=== PATIENT | female | born 1950 | race Caucasian/White ===

== ENCOUNTER → 2016-07-02 | Outpatient (CLI) | payer BC ==
[~2016-07-02] MED LIST: ACDPT PO; ALPR0.2550 PO; ASP81TEC PO; CALC1TAB38 PO; CIPR500S2 PO; CPR500T PO; HYDR118S PO; LEVO88TA26 PO; ONDA8TAB9 PO; PHEN100T26 PO; SERT25TA PO; SULF1TAB38 PO
--- NOTE | 2016-07-02 18:40 | Diagnostic Imaging Report ---
Bilateral screening mammogram. The current study was also evaluated with a Computer Aided Detection (CAD) system. INDICATION: Screening. No current complaints stated on the questionnaire. COMPARISON: 09/29/2014. FINDINGS: The breasts are composed of heterogeneously dense parenchyma which may decrease mammographic sensitivity. There is no mass, architectural distortion, or suspicious cluster of calcifications. Allowing for technique and positional differences, no suspicious change is seen. IMPRESSION: No significant change. ACR BI-RADS Category 2: Benign findings. Result letter will be mailed to the patient. Note: At least 10% of breast cancer is not imaged by mammography. Dictated by: Dictated on workstation # [id number]
== END ==
LOC: RAD 09:05
PROVIDERS: ATTEND Family Medicine
DX: Z12.31 Encounter for screening mammogram for malignant neoplasm of breast (principal)
CPT/HCPCS: 77067

== ENCOUNTER 2016-11-15 05:26 | Outpatient (CLI) | payer BC ==
[~2016-11-15] VITALS: Ht 157.5 cm; Wt 58.1 kg
[2016-11-15] MEDS ORDERED: LEVO88TA54 PO (10:37)
[2016-11-19] MEDS ORDERED: SULF1TAB35 PO (11:15)
== END 2016-11-15 10:41 ==
LOC: PREOP 05:26
PROVIDERS: ATTEND Internal Medicine
DX: Z01.818 Encounter for other preprocedural examination (principal); Z12.11 Encounter for screening for malignant neoplasm of colon

== ENCOUNTER 2016-11-19 10:27 | Day surgery (SDC) | payer BC ==
[~2016-11-19] VITALS: Ht 157.5 cm; Wt 58.1 kg
[~2016-11-19 10:27] MED LIST changes: +LEVO88TA54 PO
--- OUTSIDE RECORDS SUMMARY | 2016-11-19 10:38 | XMS REPORT | Continuity of Care Document ---
Author Author [facility] Organization [facility] Address Unknown Phone Unavailable Allergies Active Description Code Type Severity Reaction Onset Reported/Identified Relationship to Patient Clinical Status Yes No Known Drug Allergies [id number] Drug Allergy Unknown N/ A 09/18/2009 Medications Problems Date Dx Coded Attending Type Code Diagnosis Diagnosed By 07/31/2011 Ot V45.4 ARTHRODESIS STATUS 07/31/2011 Ot V57.1 PHYSICAL THERAPY NEC 08/05/2011 Ot 599.0 URIN TRACT INFECTION NOS 08/05/2011 Ot 788.1 DYSURIA 10/13/2014 LURDES RIOJAS MD Ot V76.12 07/01/2016 Ot 723.1 CERVICALGIA 07/01/2016 Ot V76.12 OTH SCREEN MAMMO-MALIGN NEOPLASM OF ALMA 07/01/2016 Ot 723.4 BRACHIAL NEURITIS NOS 07/01/2016 Ot V45.4 ARTHRODESIS STATUS 07/01/2016 LURDES RIOJAS MD Ot V76.12 OTH SCREEN MAMMO-MALIGN NEOPLASM OF ALMA 07/01/2016 LURDES RIOJAS MD Ot V76.12 OTH SCREEN MAMMO-MALIGN NEOPLASM OF ALMA 07/05/2016 SHWETHA BROWN DO Ot Z12.31 ENCNTR SCREEN MAMMOGRAM FOR MALIGNANT NE 07/17/2016 SHWETHA BROWN DO Ot Z12.31 ENCNTR SCREEN MAMMOGRAM FOR MALIGNANT NE Procedures Results Encounters ACCT No. Visit Date/Time Discharge Status Pt. Type Provider Facility Loc./Unit Complaint [id number] 07/02/2016 09:05:00 2016 23:59:59 CLS Outpatient SHWETHA BROWN DO [facility] RAD SCREENING [id number] 09/29/2014 09:09:00 2014 23:59:59 CLS Outpatient LURDES RIOJAS MD [facility] RAD SCREENING [id number] 09/28/2013 09:03:00 2013 23:59:59 [facility] Outpatient LURDES RIOJAS MD [facility] RAD SCREENING [id number] 01/14/2012 08:07:00 Document Registration [id number] 08/05/2011 06:20:00 Document Registration [id number] 07/31/2011 09:17:00 Document Registration [id number] 07/19/2011 08:36:00 Document Registration [id number] 05/01/2011 07:59:00 Document Registration
[2016-11-19] MEDS ORDERED: 1/2 NS IV SOLUTION 1,000 ML IV ONE (10:45)
[2016-11-19] MEDS ORDERED: LIDOCAINE JELLY 2% (XYLOCAINE) 5 ML TUBE ONE (10:46)
[2016-11-19 11:08] VITALS: BP 138/71
--- NOTE | 2016-11-19 11:12 | Pre-Op Note & Conscious Sedat ---
Pre-Operative Progress Note H&P Reviewed The H&P was reviewed, patient examined and no changes noted. Date H&P Reviewed: Nov 19, 2016 Time H&P Reviewed: 11:11 Conscious Sedation Pre-Proced ASA Class: 2 Airway Mallampati Classification: ([place] appropriate class) I. II. III, IV Lungs Heart ASA score ASA 1: a normal healthy patient ASA 2: a patient with a mild systemic disease (mid diabetes, controlled hypertension, obesity ASA 3: a patient with a severe systemic disease that limits activity (angina , COPD, prior Myocardial infarction) ASA 4: a patient with an incapacitating disease that is a constant threat to life (CHF, renal failure) ASA 5: a moribund patient not expected to survive 24 hrs. (ruptured aneurysm) ASA 6: a declared brain patient whose organs are being harvested. For emergent operations, add the letter E after the classification Grade 2 Sedation Plan: Analgesia, Amnesia, Plan communicated to team members, Discussed options with patient/fam, Discussed risks with patient/fam Note The patient is an appropriate candidate to undergo the planned procedure, sedation, and anesthesia. The patient immediately re-assessed prior to indication. JESSICA CASTAÑEDA MD Nov 19, 2016 11:12
[2016-11-19] MEDS: fentaNYL INJECTION 100 MCG/2 ML AMP IVP PRN ×3 (11:14→11:25)
[2016-11-19] MEDS ORDERED: SULF1TAB35 PO (11:15)
[2016-11-19] MEDS ORDERED: MIDAZOLAM 2 MG/2 ML (VERSED) VIAL ONE (11:15)
[2016-11-19] MEDS: MIDAZOLAM 2 MG/2 ML (VERSED) VIAL IVP PRN ×3 (11:16→11:23)
[2016-11-19] MEDS ORDERED: fentaNYL INJECTION 100 MCG/2 ML AMP ONE (11:19)
[2016-11-19] MEDS ORDERED: LIDOCAINE JELLY 2% (XYLOCAINE) 5 ML TUBE TOP ONE (11:45)
[2016-11-19 12:00] VITALS: BP 125/68
[2016-11-19 12:20] VITALS: BP 122/58
[2016-11-19 12:33] VITALS: BP 122/58
--- NOTE | 2016-11-21 06:51 | HISTORY AND PHYSICAL ---
DATE OF SERVICE: DATE OF ADMISSION: 11/29/2016 HISTORY OF PRESENT ILLNESS: The patient is a 66-year-old white female referred by Dr. Johnson for her second screening colonoscopy. She underwent first screening colonoscopy [address] Azevedo and reportedly had a normal examination at that time. She reports that she feels well. She denies bowel habit change, weight has been stable and she has noted no bright red blood per rectum or melena. She will occasionally pass a small amount of mucus per rectum without evidence for blood, no tenesmus, pain or reported diarrhea. 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 She has had right rotator cuff repair x3, last one in January 2008 and has a distant past history of tonsillectomy. Other than the thyroid adenoma, her past medical history is noncontributory. MEDICATIONS: Her only prescription medication is Synthroid 0.088 mg daily. She does take 81 mg aspirin daily, Krill oil and Culturelle probiotic daily. 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 FAMILY HISTORY: She had one sister with Graves disease and father had coronary artery disease with no known family history for malignancy. PHYSICAL EXAMINATION: GENERAL: Reveals a well appearing white female who appears to be in no acute distress articulate and very pleasant. VITAL SIGNS: Weight 129 pounds, blood pressure 118/80, heart rate 72 and regular. Respiratory rate 16 and nonlabored. HEENT: She is a Mallampati class 1 oropharyngeal configuration. Pharynx is clear, no erythema or exudate is noted. CHEST: Clear. CARDIOVASCULAR: Reveals regular rate and rhythm without murmur, S3 or S4. ABDOMEN: Soft, supple without mass, organomegaly or tenderness. EXTREMITIES: Reveal no cyanosis, clubbing or edema. ASSESSMENT AND PLAN: The patient was set up for screening colonoscopy on 11/29/2016. Prep instructions for the Suprep kit were given and questions were answered. In today's evaluation and review of her electronic medical record, 45 minutes care time was spent by myself and other 15 minutes of staff time setting up colonoscopy and going over prep instructions. I thank you for the referral of this pleasant lady. Job ID: [id number] DocumentID: [id number] Dictated Date: 11/14/2016 17:24:50 Mat Roller Date: 11/14/2016 19:32:06 Dictated By: JESSICA CASTAÑEDA MD MTDD
--- NOTE | 2016-11-21 13:36 | OPERATIVE REPORT ---
DATE OF SERVICE: 11/19/2016 Report Title: Colonoscopy Summary REFERRIG PHYSICIAN: Gabriela Johnson DO INDICATION FOR THE PROCEDURE: Colonoscopy was performed for screening purposes. DESCRIPTION OF PROCEDURE: The patient was placed in left lateral decubitus position. Prior to undergoing colonoscopy, digital rectal evaluation was performed. Anal sphincter tone was normal and the perianal reflex was intact. No abnormalities were noted on additional inspection of anal canal or distal rectal vault. The colonoscope was then inserted into the rectum under direct ultrasound visualization advanced to the cecum. The cecum was identified by identification of the ileocecal valve, cecal strap and the appendiceal orifice. Photographic documentation was obtained. A careful inspection was made as the colonoscope was withdrawn. The patient tolerated the procedure well. FINDINGS: There was no evidence for internal or external hemorrhoids. The rectum, sigmoid colon, descending colon, splenic flexure, transverse colon, hepatic flexure, ascending colon and cecum were normal with no evidence for neoplasia, diverticular disease or vascular malformation. ASSESSMENT: Normal colonoscopy to the cecum. As this is the patient's second normal screening colonoscopy with no reported family history for colon cancer, it is questionable as to whether or not surveillance colonoscopy in 10 years should be recommended. I thank you for the referral of this pleasant lady. Prior to the procedure, the patient also noted yesterday the onset of suprapubic pressure with increased urinary frequency and mild dysuria. She denied chills, fever or fatigue. Prior to colonoscopy, she appeared to be in no acute distress with stable vital signs. Her chest was clear. CV revealed a regular rate and rhythm without S3 or S4. She had mild suprapubic discomfort to palpation without rebound or guarding and did not believe she would have any problems proceeding with the procedure. She as noted above had an uneventful colonoscopy. A/P: Likely urinary tract infection, patient reports that she gets along well with Bactrim-DS, so one tab b.i.d. for the next 3 days was called out. If her symptoms are not resolving, she was instructed to contact Dr. Johnson for further evaluation. At the unlikely chance that she would develop shaking chills or fever. She is advised to go to the emergency room. Job ID: [id number] DocumentID: [id number] Dictated Date: 11/19/2016 11:58:50 Grant Specialist Date: 11/20/2016 00:30:22 Dictated By: JESSICA CASTAÑEDA MD MTDD
== END 2016-11-19 12:30 | disposition home or self-care (01) ==
LOC: ENDO 10:27
PROVIDERS: ATTEND Internal Medicine
DX: Z12.11 Encounter for screening for malignant neoplasm of colon (principal); R35.0 Frequency of micturition; R30.0 Dysuria

== ENCOUNTER → 2017-07-15 | Outpatient (CLI) | payer BC, MEDICARE ==
[~2017-07-15] MED LIST changes: +SULF1TAB35 PO
--- NOTE | 2017-07-15 10:48 | Diagnostic Imaging Report ---
Indication: Screening. The current study was also evaluated with a Computer Aided Detection (CAD) system. Comparison made with prior examination of 07/02/2016 back through 07/19/2011. 3-D tomosynthesis was also performed and reviewed. Findings: There is heterogeneously dense fibroglandular tissue bilaterally. There is a cluster of microcalcifications in the superolateral aspect of the left breast although in the CC projection these appear linear and likely vascular. These are relatively unchanged. There are no other suspicious calcifications. There is no dominant mass or spiculated lesion. Skin, nipples and axilla are unremarkable. Impression: Category 2 benign. ACR BI-RADS Category 2: Benign findings. Result letter will be mailed to the patient. Note: At least 10% of breast cancer is not imaged by mammography. Dictated by: Dictated on workstation # [id number]
== END ==
LOC: RAD 07:31
PROVIDERS: ATTEND Family Medicine
DX: Z12.31 Encounter for screening mammogram for malignant neoplasm of breast (principal)
CPT/HCPCS: 77067

== ENCOUNTER → 2018-07-16 | Outpatient (CLI) | payer BC ==
--- NOTE | 2018-07-16 22:15 | Diagnostic Imaging Report ---
INDICATION: Routine screening. Comparison is made with prior mammograms from 07/15/2017 and 07/02/2016. 2-D and 3-D bilateral screening mammography was performed with a Computer Aided Detection (CAD) system. 3-D tomosynthesis was also performed and reviewed. FINDINGS: Scattered fibroglandular densities are identified bilaterally. Calcifications in the upper-outer left breast at posterior depth are again noted and indeterminate. These are similar to perhaps slightly increased when compared to prior study. Additional views are recommended. Remainder of the breasts is unremarkable. Axillae are unremarkable. IMPRESSION: Left breast calcifications. Additional views are recommended. ACR BI-RADS Category 0: Incomplete. (Needs additional imaging evaluation). Result letter will be mailed to the patient. Note: At least 10% of breast cancer is not imaged by mammography. Dictated by: Dictated on workstation # [id number]
== END ==
LOC: RAD 07:31
PROVIDERS: ATTEND Family Medicine
DX: Z12.31 Encounter for screening mammogram for malignant neoplasm of breast (principal); R92.1 Mammographic calcification found on diagnostic imaging of breast
CPT/HCPCS: 77067

== ENCOUNTER → 2018-07-23 | Outpatient (CLI) | payer BC ==
--- NOTE | 2018-07-23 19:35 | Diagnostic Imaging Report ---
EXAMINATION: Digital mammogram unilateral left diagnostic. The current study was also evaluated with a Computer Aided Detection (CAD) system. 3-D tomosynthesis was also performed and reviewed. INDICATION: Left breast microcalcifications. FINDINGS: The screening mammogram performed on 07/15/2017 noted calcifications in the upper-outer aspect of the left breast at posterior depth. These were felt to be slightly increased when compared to the prior study of 07/15/2017. The magnification views of these calcifications suggest that they were most likely benign and possibly within the skin. A tangential view was performed and the calcifications do not appear to be present on that projection. I do suspect that they are within the skin. In my examination of the patient's left breast, there was a small raised area on the skin in the region of the calcifications. Consequently suspect that the calcifications are dermal and most likely benign. Even so, I would recommend that a short-term (six-month) follow-up mammogram of the left breast be obtained for continued evaluation. IMPRESSION: The calcifications in the upper-outer aspect of the left breast are felt to be dermal in nature. Recommendations as above. ACR BI-RADS Category 3: Probably benign findings. Result letter will be mailed to the patient. Note: At least 10% of breast cancer is not imaged by mammography. Dictated by: Dictated on workstation # [id number]
== END ==
LOC: RAD 13:30
PROVIDERS: ATTEND Family Medicine
DX: R92.0 Mammographic microcalcification found on diagnostic imaging of breast (principal)

== ENCOUNTER → 2019-01-21 | Outpatient (CLI) | payer BC ==
--- NOTE | 2019-01-22 07:43 | Diagnostic Imaging Report ---
Unilateral diagnostic left mammogram. Indication: Followup calcifications. The study was compared to the prior exams of 07/16/2018, 07/15/2017, 07/02/2016 and 09/29/2014. At this time there are no current complaints. The previous mammogram performed on 07/23/2018 noted calcifications in the upper outer aspect of the left breast. These were felt to be dermal in nature. On this study the calcifications are again identified and seem stable. They do appear to be within the skin. The fibroglandular tissue in the left breast is heterogeneously dense. This does limit the sensitivity of this exam. Overall, there has been no significant change. There is no primary or secondary sign of malignancy noted. Impression: 1. The dermal calcification seen on the prior study are again evident and appear stable. There is no evidence for malignancy. 2. The patient should have her annual bilateral screening mammogram on schedule in July of 2019. ACR BI-RADS Category 2: Benign findings. Result letter will be mailed to the patient. Note: At least 10% of breast cancer is not imaged by mammography. Dictated by: Dictated on workstation # [id number]
== END ==
LOC: RAD 09:17
PROVIDERS: ATTEND Family Medicine
DX: R92.1 Mammographic calcification found on diagnostic imaging of breast (principal)

== ENCOUNTER → 2020-01-18 | Outpatient (CLI) | payer BC ==
--- NOTE | 2020-01-18 12:54 | Diagnostic Imaging Report ---
INDICATION: Routine screening. COMPARISON: 07/16/2018 and 07/15/2017. TECHNIQUE: 2D and 3D bilateral screening mammography was performed with CAD. FINDINGS: Scattered fibroglandular densities are identified bilaterally. The parenchymal pattern is stable. Calcifications in the upper outer left breast appear stable and have been shown to represent dermal calcifications. No new mass or malignant appearing microcalcifications are seen. The axillae are unremarkable. IMPRESSION: No mammographic features suspicious for malignancy are identified. ACR BI-RADS Category 2: Benign findings. Result letter will be mailed to the patient. Note: At least 10% of breast cancer is not imaged by mammography. Dictated by: Dictated on workstation # [id number]
== END ==
LOC: RAD 07:30
PROVIDERS: ATTEND Nurse Practitioner Family
DX: Z12.31 Encounter for screening mammogram for malignant neoplasm of breast (principal)
CPT/HCPCS: 77063; 77067

== ENCOUNTER 2020-07-20 05:41 | Outpatient (CLI) | payer BC ==
[~2020-07-20] VITALS: Ht 157.5 cm; Wt 57.7 kg
[2020-07-20] MEDS ORDERED: ATOR20TA66 PO (11:49)
== END 2020-07-20 13:34 | disposition home or self-care (01) ==
LOC: PREOP 05:41
PROVIDERS: ATTEND Internal Medicine
DX: Z01.818 Encounter for other preprocedural examination (principal)

== ENCOUNTER 2020-07-28 08:20 | Day surgery (SDC) | payer BC ==
[2020-07-28] VITALS (7 sets, daily range): BP systolic 114–138; BP diastolic 55–77
[~2020-07-28] VITALS: Ht 158 cm; Wt 58.0 kg
[~2020-07-28 08:20] MED LIST changes: +ATOR20TA66 PO
[2020-07-28] MEDS ORDERED: LACTATED RINGERS 1,000 ML IV STA (08:32)
[2020-07-28] MEDS ORDERED: LACTATED RINGERS 1,000 ML IV ONE (08:35)
[2020-07-28] MEDS ORDERED: LIDOCAINE JELLY 2% 6 ML SYRINGE MM PRN (08:45)
--- NOTE | 2020-07-28 08:52 | Pre-Op Note & Conscious Sedat ---
Pre-Operative Progress Note H&P Reviewed The H&P was reviewed, patient examined and no changes noted. Date H&P Reviewed: Jul 28, 2020 Time H&P Reviewed: 08:52 Conscious Sedation Pre-Proced ASA Score 2 For ASA 3 and 4: Consider anesthesia and medical clearance. Also, for patients with a history of failed moderate sedation consider anesthesia. Airway Lungs Heart ASA score ASA 1: a normal healthy patient ASA 2: a patient with a mild systemic disease (mid diabetes, controlled hypertension, obesity ASA 3: a patient with a severe systemic disease that limits activity (angina, COPD, prior Myocardial infarction) ASA 4: a patient with an incapacitating disease that is a constant threat to life (CHF, renal failure) ASA 5: a moribund patient not expected to survive 24 hrs. (ruptured aneurysm) ASA 6: a declared brain- patient whose organs are being harvested. For emergent operations, add the letter E after the classification Mallampati Classification Grade 2 Sedation Plan Analgesia, Amnesia, Plan communicated to team members, Discussed options with patient/fam, Discussed risks with patient/fam The patient is an appropriate candidate to undergo the planned procedure, sedation, and anesthesia. The patient immediately re-assessed prior to indication. JESSICA CASTAEÑDA MD Jul 28, 2020 08:52
[2020-07-28] MEDS ORDERED: PROPOFOL INJECTION 50 ML IV ONE (09:33)
[2020-07-28] MEDS ORDERED: MIDAZOLAM 2 MG/2 ML (VERSED) VIAL ONE (09:33)
--- NOTE | 2020-07-28 15:06 | Anesthesia-General Post-Op ---
MAC Patient Condition Mental Status/LOC: Same as Preop Cardiovascular: Satisfactory Nausea/Vomiting: Absent Respiratory: Satisfactory Pain: Controlled Complications: Absent Post Op Complications Complications None Follow Up Care/Instructions Patient Instructions None needed. Anesthesiology Discharge Order Discharge Order Patient is doing well, no complaints, stable vital signs, no apparent adverse anesthesia problems. No complications reported per nursing. TANMAY VELASQUEZ CRNA Jul 28, 2020 15:06
--- NOTE | 2020-07-28 16:57 | OPERATIVE REPORT ---
DATE OF SERVICE: COLONOSCOPY SUMMARY INDICATION FOR THE PROCEDURE: Diagnostic colonoscopy and rectal bleeding. DESCRIPTION OF PROCEDURE: The patient was placed in the left lateral decubitus position. Prior to undergoing colonoscopy, a digital rectal evaluation was performed. Anal sphincter tone was normal and the perianal reflexes intact. No abnormalities were noted on digital inspection of anal canal or distal rectal vault. The colonoscope was inserted into the rectum and under direct visualization advanced to the cecum. The cecum was identified by identification of the ileocecal valve and cecal strap. Photographic documentation was obtained. Quality of prep was good. FINDINGS: There was no evidence for internal or external hemorrhoids and the rectum, sigmoid colon, descending colon, splenic flexure, transverse colon, hepatic flexure, ascending colon and cecum were unremarkable. ASSESSMENT: Normal colonoscopy to the cecum. The patient was reassured by today's findings. Advise consideration for repeat screening colonoscopy in 10 years. Job ID: [id number] DocumentID: [id number] Dictated Date: 07/28/2020 10:42:54 Pediatric Anesthesiologist Date: 07/28/2020 16:56:33 Dictated By: JESSICA CASTAÑEDA MD
== END 2020-07-28 10:55 | disposition home or self-care (01) ==
LOC: ENDO 08:20
PROVIDERS: ATTEND Internal Medicine
DX: K62.5 Hemorrhage of anus and rectum (principal); E06.3 Autoimmune thyroiditis; E78.5 Hyperlipidemia, unspecified; Z79.899 Other long term (current) drug therapy; Z79.890 Hormone replacement therapy

== ENCOUNTER → 2021-01-18 | Outpatient (CLI) | payer BC ==
[~2021-01-18] MED LIST changes: -SULF1TAB35 PO
--- NOTE | 2021-01-18 11:46 | Diagnostic Imaging Report ---
INDICATION: Routine screening. Comparison is made prior mammogram 01/18/2020 and 07/16/2018. 2-D and 3-D bilateral screening mammography was performed with CAD. Scattered fibroglandular densities are identified bilaterally. The parenchymal pattern is stable. No mass or malignant appearing microcalcifications are seen. Axillae are unremarkable. IMPRESSION: BI-RADS Category 1 No mammographic features suspicious for malignancy are identified. ACR BI-RADS Category 1: Negative. Result letter will be mailed to the patient. Note: At least 10% of breast cancer is not imaged by mammography. Dictated by: Dictated on workstation # [id number]
== END ==
LOC: RAD 08:00
PROVIDERS: ATTEND Family Medicine
DX: Z12.31 Encounter for screening mammogram for malignant neoplasm of breast (principal)
CPT/HCPCS: 77063; 77067

== ENCOUNTER → 2022-01-22 | Outpatient (CLI) | payer BC ==
--- NOTE | 2022-01-22 09:56 | Diagnostic Imaging Report ---
INDICATION: Postmenopausal screening COMPARISON: Baseline FINDINGS: AP Spine L1-L4: [BMD (g/cm2): 0.957] [T-Score: -2.0] [Z-Score: 0.0] [BMD Previous: na] [BMD % Change: na] LT Hip Neck: [BMD (g/cm2): 0.860] [T-Score: -1.3] [Z-Score: 0.6] LT Hip Total: [BMD (g/cm2):0.900] [T-Score:-0.9] [Z-Score: 0.8] [BMD Previous: na] [BMD % Change: na] RT Hip Neck: [BMD (g/cm2):0.827] [T-Score:-1.5] [Z-Score:0.4] RT Hip Total: [BMD (g/cm2):0.903] [T-score:-0.8] [Z-Score:0.8] [BMD Previous:na] [BMD % Change:na] *Indicates significant change from prior examination based on 95% confidence level. World Health Organization criteria for BMD interpretation classify patients as Normal (T-score at or above -1.0), Osteopenic (T-score between -1.0 and -2.5) or Osteoporotic (T-score at or below -2.5). LIMITATIONS AND MODIFICATION: None. FRACTURE RISK (FRAX SCORE): The ten year probability of (%): Major Osteoporotic Fracture: [9.3] Hip Fracture: [1.4] IMPRESSION: 1. Osteopenia (Low bone mass). 2. Baseline examination. 3. See below National Osteoporosis Foundation guidelines on when to potentially initiate pharmacologic therapy. Based on the National Osteoporosis Foundation Guidelines, pharmacologic treatment should be initiated in any of the following, unless clinical conditions suggest otherwise: * Any patient with prior fragility fracture of the hip or vertebrae. A spine fracture indicates 5X risk for subsequent spine fracture and 2X risk for subsequent hip fracture. * Osteoporosis (T-score <-2.5). * Postmenopausal women and men age 50 and older with low bone mass/osteopenia (T-score between -1.0 and -2.5) by DXA and 10-year major osteoporotic fracture greater than 20% or a 10-year probability of hip fracture greater than 3%. These fracture risks are supplied above in the FRAX score, if applicable. * Clinician judgement and/or patient preferences may indicate treatment for people with 10-year fracture probabilities above or below these levels. Dictated by: Dictated on workstation # [id number]
--- NOTE | 2022-01-22 14:28 | Diagnostic Imaging Report ---
INDICATION: Routine screening. Comparison is made with prior mammogram from 01/18/2021 and 01/18/2020. 2-D and 3-D bilateral screening mammography was performed with CAD. Scattered fibroglandular densities are identified bilaterally. The parenchymal pattern is stable. No mass or malignant-appearing microcalcifications are seen. Axillae are unremarkable. IMPRESSION: No mammographic features suspicious for malignancy are identified. ACR BI-RADS Category 1: Negative. Result letter will be mailed to the patient. Note: At least 10% of breast cancer is not imaged by mammography. BI-RADS Category 1 Dictated by: Dictated on workstation # [id number]
== END ==
LOC: RAD 08:57
PROVIDERS: ATTEND Family Medicine
DX: Z12.31 Encounter for screening mammogram for malignant neoplasm of breast (principal); Z13.820 Encounter for screening for osteoporosis; M85.80 Other specified disorders of bone density and structure, unspecified site; Z78.0 Asymptomatic menopausal state
CPT/HCPCS: 77063; 77067; 77080